=== PATIENT | male | born 1930 | race Caucasian/White ===

== ENCOUNTER → 2017-08-17 | Outpatient (CLI) | payer MEDICARE ==
[~2017-08-17] MED LIST: AMIO200T42 PO; AMLO10TA2 PO; ASCO500T8 PO; ASPI-621 PO; ASPI325T17 PO; ATOR10TA9 PO; AZIT250T89 PO; CALC1CAP8 PO; CEFD300C37 PO; CHOL10003 PO; CLOP75TA PO; DOXY75TA PO; GLUC1500 PO; LEVO500T47 PO; LEVO75TA5 PO; LOSA25TA5 PO; METO25TA91 PO; MULT-658 PO; OXYC5CAP2 PO; PRED20TA PO; TRAZ100T15 PO; TRIA15CR3 TP; UBID100C24 PO; WARF5TAB PO
== END | disposition home or self-care (01) ==
LOC: CFH 07:13
PROVIDERS: ATTEND Internal Medicine Cardiovascular Disease
DX: I08.1 Rheumatic disorders of both mitral and tricuspid valves (principal); I25.2 Old myocardial infarction; Z95.2 Presence of prosthetic heart valve; Z95.0 Presence of cardiac pacemaker; Z79.82 Long term (current) use of aspirin
CPT/HCPCS: 93306

== ENCOUNTER → 2019-08-28 | Outpatient (CLI) | payer MEDICARE ==
[~2019-08-28] MED LIST changes: -AMLO10TA2 PO; +AMLO10TA8 PO; -ASPI-621 PO; +ASPI81TA45 PO; -DOXY75TA PO; +DOXY75TA13 PO; -GLUC1500 PO; +GLUC15006 PO; +LOSA25TA25 PO; -LOSA25TA5 PO; +TRAZ-137 PO; -TRAZ100T15 PO; -TRIA15CR3 TP; +TRIA15CR61 TP
== END | disposition home or self-care (01) ==
LOC: CFH 12:31
PROVIDERS: ATTEND Internal Medicine Cardiovascular Disease
DX: I36.1 Nonrheumatic tricuspid (valve) insufficiency (principal); I10 Essential (primary) hypertension; E78.5 Hyperlipidemia, unspecified
CPT/HCPCS: 93306

== ENCOUNTER → 2020-09-30 | Outpatient (CLI) | payer MEDICARE ==
[~2020-09-30] MED LIST changes: +AMLO-211 PO; -AMLO10TA8 PO; +REGADENOSON 0.4 MG/5 ML SYRINGE ONE; -TRAZ-137 PO; +TRAZ-175 PO; -WARF5TAB PO; +WARF5TAB2 PO
== END | disposition home or self-care (01) ==
LOC: CFH 07:47
PROVIDERS: ATTEND Internal Medicine Cardiovascular Disease
DX: I44.7 Left bundle-branch block, unspecified (principal); I25.10 Atherosclerotic heart disease of native coronary artery without angina pectoris
CPT/HCPCS: 78452; 93017; A9502; J2785

== ENCOUNTER 2020-12-19 12:36 | Outpatient (CLI) | payer MEDICARE ==
[~2020-12-19 12:36] MED LIST changes: -REGADENOSON 0.4 MG/5 ML SYRINGE ONE
== END 2020-12-19 23:59 | disposition home or self-care (01) ==
LOC: CFH 12:36
PROVIDERS: ATTEND Registered Nurse
DX: I36.1 Nonrheumatic tricuspid (valve) insufficiency (principal); I27.20 Pulmonary hypertension, unspecified
CPT/HCPCS: 93306